=== PATIENT | female | born 1960 | race Caucasian/White ===

== ENCOUNTER → 2019-10-29 12:54 | Outpatient (BNVA) | payer MEDICARE, MEDICAID, SELFPAY | PROVIDERS: PCP Nurse Practitioner Family; Visit Provider Internal Medicine | DX: M25.50 Pain in unspecified joint (principal); R53.1 Weakness; Z79.899 Other long term (current) drug therapy | CPT/HCPCS: 36415; 99214 ==

== ENCOUNTER 2019-10-29 15:14 | Outpatient (CLI) | payer MEDICARE, MEDICAID, SELFPAY ==
--- NOTE | 2019-10-29 15:29 | XR_ITS ---
WS: [id number] TECHNIQUE: 2 views of the left hand CLINICAL INFORMATION: hand pain COMPARISON: None. FINDINGS: Normal metacarpals. Normal MCP joint. Mild IP joint narrowing.. No evidence of acute fracture or disl ocation. A few small erosions involving the metacarpal heads. Degenerative arthritis first CMC. Radiocarpal joint: Normal. Carpal bones: Normal. XR/XR hand LT 2V [id number] IMPRESSION: 1. No acute fracture dislocation. 2. A few small erosions involving the metacarpal heads. 3. Mild IP joint space narrowing.
--- NOTE | 2019-10-29 15:29 | XR_ITS ---
WS: [id number] TECHNIQUE: 2 views of the right hand CLINICAL INFORMATION: hand pain COMPARISON: None. FINDINGS: Normal metacarpals. Normal MCP joint. Metacarpal heads are normal in appearance. Mild IP joint narrow ing. No evidence of acute fracture or dislocation. Radiocarpal joint: Normal. Carpal bones: Normal. XR/XR hand RT 2V [id number] IMPRESSION: No acute right hand findings
--- NOTE | 2019-10-29 15:29 | XR_ITS ---
WS: [id number] LUMBAR SPINE TECHNIQUE: 3 views of the lumbar spine CLINICAL INFORMATION: lower back pain COMPARISON: None. FINDINGS: Five [id number] lumbar vertebral bodies. Mild lumbar curve convex left. Osteopenia. Moderate spo ndylitic changes. Grade 1 anterolisthesis L4 on L5 measuring 6.4 mm. Moderate facet arthropathy L4-L5 and L5-S1. Mild disc space narrowing L3-4. Anterior hypertrophic changes in the lower thoracic and u pper lumbar spine. XR/XR lumbar spine 2-3V* [id number] IMPRESSION: 1. Mild lumbar curve convex left. 2. Grade 1 anterolisthesis L4 on L5 measuring 6.4 mm. 3. Mild disc space narrowing worse at L3-4. 4. Moderate spondylitic changes with anterior hypertrophic spurring lower thor acic and lumbar spine. 5. Moderate facet arthropathy L5-S1.
== END 2019-10-29 15:15 | disposition home or self-care (01) ==
LOC: RADWPI 15:25
PROVIDERS: Family Provider Nurse Practitioner Family; PCP Nurse Practitioner Family; Visit Provider Internal Medicine
DX: M54.5 Low back pain (principal); M79.641 Pain in right hand; M79.642 Pain in left hand; M85.842 Other specified disorders of bone density and structure, left hand; M47.817 Spondylosis without myelopathy or radiculopathy, lumbosacral region; R53.1 Weakness
CPT/HCPCS: 72100; 73120; 82306; 82533; 82550; 82607; 82728; 83540; 84100; 84439; 84443; 86431

== ENCOUNTER → 2020-01-09 13:17 | Outpatient (BNVA) | payer MEDICARE, MEDICAID, SELFPAY | PROVIDERS: Family Provider Nurse Practitioner Family; PCP Nurse Practitioner Family; Visit Provider Internal Medicine | DX: M13.80 Other specified arthritis, unspecified site (principal); M25.50 Pain in unspecified joint; R79.89 Other specified abnormal findings of blood chemistry; E27.40 Unspecified adrenocortical insufficiency; M54.5 Low back pain | CPT/HCPCS: 99214 ==

== ENCOUNTER → 2020-02-01 10:58 | Outpatient (BNVA) | payer MEDICARE, MEDICAID, SELFPAY | PROVIDERS: Family Provider Nurse Practitioner Family; PCP Nurse Practitioner Family; Visit Provider Internal Medicine | DX: E03.9 Hypothyroidism, unspecified (principal); E27.40 Unspecified adrenocortical insufficiency; R53.1 Weakness; R53.83 Other fatigue | CPT/HCPCS: 99204 ==

== ENCOUNTER → 2020-03-25 14:09 | Outpatient (BNVA) | payer MEDICARE, MEDICAID, SELFPAY | PROVIDERS: Family Provider Nurse Practitioner Family; Visit Provider Internal Medicine | DX: M06.00 Rheumatoid arthritis without rheumatoid factor, unspecified site (principal); Z79.899 Other long term (current) drug therapy; Z79.52 Long term (current) use of systemic steroids; Z11.59 Encounter for screening for other viral diseases; Z11.1 Encounter for screening for respiratory tuberculosis; D86.9 Sarcoidosis, unspecified; M32.9 Systemic lupus erythematosus, unspecified; E55.9 Vitamin D deficiency, unspecified; R53.83 Other fatigue; R10.9 Unspecified abdominal pain; M54.5 Low back pain; R53.1 Weakness | CPT/HCPCS: 36415; 80053; 82550; 85025; 85651; 86140; 86480; 86704; 86803; 87340; 99214 ==

== ENCOUNTER → 2020-08-26 13:14 | Outpatient (BNVA) | payer MEDICARE, MEDICAID, SELFPAY | PROVIDERS: Family Provider Nurse Practitioner Family; PCP Family Medicine; Visit Provider Internal Medicine | DX: M13.80 Other specified arthritis, unspecified site (principal); Z79.899 Other long term (current) drug therapy; E11.22 Type 2 diabetes mellitus with diabetic chronic kidney disease; N18.9 Chronic kidney disease, unspecified; Z79.84 Long term (current) use of oral hypoglycemic drugs; M54.5 Low back pain; R53.83 Other fatigue | CPT/HCPCS: 36415; 80053; 82550; 82607; 82728; 83735; 84100; 84443; 85025; 85651; 96372; 99214 ==